=== PATIENT | female | born 2000 | race Caucasian/White ===

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

== ENCOUNTER → 2022-01-19 11:05 | Outpatient (BNVA) | payer MEDICAID, SELFPAY | PROVIDERS: PCP Family Medicine; Visit Provider Obstetrics & Gynecology | DX: Z34.80 Encounter for supervision of other normal pregnancy, unspecified trimester (principal) | CPT/HCPCS: 84315; 87081 ==

== ENCOUNTER → 2022-02-02 11:06 | Outpatient (BNVA) | payer MEDICAID, SELFPAY | PROVIDERS: PCP Family Medicine; Visit Provider Obstetrics & Gynecology | DX: Z34.92 Encounter for supervision of normal pregnancy, unspecified, second trimester (principal) | CPT/HCPCS: 83986; 84315 ==

== ENCOUNTER 2022-02-17 17:02 | Inpatient (IN) | payer MEDICAID, SELFPAY ==
[2022-02-17] VITALS (19 sets, daily range): BP systolic 100–142; BP diastolic 57–83; PULSE 65–121; RESP 16–18; TEMP 37.3; O2SAT 98–99; BMI 29.9
--- NOTE | 2022-02-17 17:43 | PM.OPHPUD ---
Labor & Delivery H&P Update Date of Procedure: February 18, 2022 Date H&P Performed: 02/16/22 H&P update information: I have reviewed H&P completed within last 30 days, I have examined patient prior to procedure and No changes to prior documentation Admission Diagnosis: Preop diagnosis: Planning of labor analgesia
[2022-02-17] MEDS: miSOPROStol 100 mcg tablet 25 MCG VAGINAL (18:08)
[2022-02-17 18:13] LABS: Basophils % 0.3 %; Eosinophils % 0.3 %; Hematocrit 36.1 % (37.0-47.0); Hemoglobin 12.1 g/dL (11.5-15.3); Lymphocytes # 1.7 10^3/uL (1.5-6.5); Lymphocytes % 22.8 %; Mean Corpuscular HGB Conc 33.5 g/dL (30.0-36.0); Mean Corpuscular Hemoglobin 29.4 pg (28.0-34.0); Mean Corpuscular Volume 87.8 fl (81-99); Monocytes # 0.6 10^3/uL (0.2-0.9); Monocytes % 7.6 %; Neutrophils # 5.23 10^3/uL (1.8-8.0); Neutrophils % 68.6 %; Nucleated Red Blood Cells % 0 %; Platelet Count 214 10^3/cmm (130-400); Red Blood Count 4.11 10^6/uL (4.1-5.3); Red Cell Distribution Width 13.3 % (12.1-15.1); White Blood Count 7.6 10^3/uL (4.5-13.0)
[2022-02-17] MEDS: dextrose 5%-lactated ringers 1,000 ML 125 ML IV (22:15)
[2022-02-17] MEDS: fentaNYL 50 mcg/mL INJ 2mL IVP (22:15)
[2022-02-17] MEDS: lactated ringers 1,000 ML 999 ML IV (22:33)
--- NOTE | 2022-02-17 23:38 | P.ANESUD_ITS ---
Pre-Anesthetic Update Pre-Anesthetic Assessment: Date of Surgery/Procedure: 02/17/22 Preop Carmela gnosis: Planning of labor analgesia Proposed Procedure: Labor Epidural Changes from Pre-Anesthetic Assessment: none Last Intake: 1999 Labs Last 48hrs: Short CBC 02/17/22 Range/Units 17:20 WBC 7.6 (4.5-13.0) 10^3/ uL Hgb 12.1 (11.5-15.3) g/dL Hct 36.1 L (37.0-47.0) % MCV 87.8 (81-99) fl Plt Count 214 (130-400) 10^3/c mm Neut % (Auto) 68.6 % Neut # (Auto) 5.23 (1.8-8.0) 10^3/u L Vitals: Temperature 99.1 F 02/17/22 17:10 Pulse Rate 121 H 02/17/22 23:33 Pulse Rhythm 02/17/22 17:35 Pulse Strength 3+ Normal 02/17/22 17:35 Respiratory Rate 16 02/17/22 22:15 Respiratory Effort Non-Labored 02/17/22 22:15 Respiratory Depth Normal 02/17/22 22:15 Respiratory Patter n 02/17/22 22:15 Blood Pressure 137/75 02/17/22 23:33 Pulse Oximetry 98 02/17/22 23:31 Oxygen Delivery Me thod 02/17/22 17:35 Cardiac Studies: No Data to Display Anesthesia Procedures Epidural: Time Out Performed: Yes Consents Signed: Procedure Consent Consent: requested by attending/covering physician, from patient, risks and benefits reviewed and patient agrees to proceed Lumbar Level: L3-L4 Epidural position: sitting Epidural procedure: sterile prep of area, 1% lidocaine to numb the area, negative for paresthesia passed, test dose given, no systemic response, sterile dressing applied, L.U.D. no apparent complications and 0.2% Ropiavacaine @ mls/hr (13) Additional Comments: MARTINA at 5.5cm on first attempt, catheter threaded to 12 cm with ease. Remaining 1% lidocaine given via epidural with 100 mcg of Fentanyl.
[2022-02-18] VITALS (65 sets, daily range): BP systolic 94–139; BP diastolic 51–90; PULSE 59–123; RESP 14–17; TEMP 36.6–38.4
[2022-02-18] MEDS: dextrose 5%-lactated ringers 1,000 ML 125 ML IV (04:03)
[2022-02-18] MEDS: alum-mag-hydroxide-sime 30 mL UDC PO (05:49)
--- NOTE | 2022-02-18 06:45 | P.PN_ITS ---
Subjective Subjective: Mrs. Conroy is a 21-year-old female G1, P0 with an EGA at 39+2. In active labor with epidural. Vitals/I&O/Wt Last Vital Signs Temp 101.1 F H 02/18/22 06:03 Pulse 87 02/18/22 06:41 Resp 16 02/17/22 22:15 BP 121/66 02/18/22 06:41 Pulse Ox 98 02/17/22 23:31 02/17/22 02/17/22 02/18/22 14:59 22:59 06:59 Intake Total 825.000 / 825.000 Output Total 1700 / 1700 Balance -875.000 / -875.000 Weight last 48 hrs Weight 81.647 kg Physical Exam Narrative: GA: Alert and oriented ?3. Lungs: Clear to auscultation bilaterally. Heart: Regular rhythm and rate. Abdomen: Gravid, full the height equals dates, nontender. BRIM GREASER OPERATOR: SVE; dilation: 10 cm, effacement: 95%, station: -4, presentation: vx, membranes: SROM clear. Extremities: no edema, no cyanosis, no calves pain. heart tracing: Basal rate: 140's bpm, Variability: moderate, Accelerations: present, Decelerations: absent, Contraction: q3min. Urinary Catheter Management: Gonsalves: Cath Placed During This Visit: yes Reason for Continuing Indwelling Catheter: Other Urinary Catheter Date of Insertion: 02/18/22 Urinary Catheter Time of Insertion: 00:15 Data : 02/17/22 17:20 A&P Assessment and plan (1) Active labor at term: Mrs. Smith 21-year-old female G1, P0 with an estimated gestational age of 39 weeks 2 days. Admitted for elective induction. Misoprostol was given for cervical ripening just once. She progressed adequately. heart tracing category 1. scalp stimulation positive. Anticipate vaginal delivery. Status: Acute Plan Continue monitoring. Attestations Medical Necessity Statement*: In my professional opinion per admitting diagnosis Coding Level of Care Code Acute Storage Management Architect for Chg Fwd Diagnoses Active labor at term
--- NOTE | 2022-02-18 12:15 | PM.DELIVERY ---
Delivery Note: Date of delivery: February 18, 2022 Pre-delivery diagnoses: Term Post-delivery diagnoses: Term delivered Procedure: A spontaneous vaginal delivery Delivering Physician: Juventino Kim MD Estimated blood loss (mL): 300 Delivery: The patient was noted to be complete and pushing, so was placed in the dorsal lithotomy position, prepped and draped in the usual sterile fashion for a vaginal delivery. Pt. Noted to have epidural anesthesia. At 1130 the patient delivered a viable term male weighing 3520g with scores of 8 and 9 at one and five minutes, respectively. The vertex was delivered spontaneously over intact.. The patient was asked to push and the head delivered spontaneously in the CHRISTIAN position, over an intact perineum. A nuchal cord was checked and none noted. The anterior shoulder delivered easily and the posterior shoulder followed. The remainder of the was easily delivered and the oropharynx and nasopharynx was bulb suctioned. The was noted to have spontaneous cry and spontaneous movement of all four extremities. The cord was clamped x 2 and cut and noted to have 2 arteries and one vein. The was passed to the mother's at where nursing personnel were in attendance. Cord blood sample was then obtained. The placenta delivered intact spontaneously and the uterus was explored. 20 units of Pitocin was placed in the IV bag to firm the uterus. Examination of the cervix and vaginal vault did not reveal any lacerations. A vaginal pack was then placed. Examination of the perineum showed second-degree laceration. The laceration was repaired with 3-0 Vicryl in the normal fashion in a running non locking fashion to reapproximate the laceration in layers. The vaginal pack was then removed. The patient tolerated this procedure well, and recovered in L&D with her in their LDR room. All sponge and needle counts were correct. History History History 1 Term Miscarriages/Ectopic Living Children Coding Level of Care Code Acute Optical Effects Camera Operator for Jesus Grayson
[2022-02-18] MEDS: ibuprofen 800 mg tablet PO ×2 (14:27→22:11)
[2022-02-18] MEDS: oxytocin 30 UNIT/500 ML BAG 600 UNIT IV (14:28)
[2022-02-18] MEDS: lanolin oint 7 gm 1 APPLIC TOPICAL (14:28)
[2022-02-18] MEDS: benzocaine-menthol 78 gm Canister 1 SPRAY TOPICAL (14:28)
[2022-02-18] MEDS: acetaminophen 325 mg Tablet 650 MG PO (19:17)
[2022-02-18] MEDS: docusate sodium 100 mg Capsule PO (19:18)
[2022-02-19 01:50] LABS: Hematocrit 33.2 % (37.0-47.0); Mean Corpuscular HGB Conc 33.1 g/dL (30.0-36.0); Mean Corpuscular Hemoglobin 29.7 pg (28.0-34.0); Mean Corpuscular Volume 89.7 fl (81-99); Mean Platelet Volume 10.8 fL (7.4-10.4); Platelet Count 190 10^3/cmm (130-400); Red Cell Distribution Width 13.4 % (12.1-15.1); White Blood Count 13.2 10^3/uL (4.5-13.0)
--- NOTE | 2022-02-19 07:21 | ANE.PACU2 ---
Inpatient post-anesthesia follow up: Airway intact: Yes Vital signs: Temperature 97.8 F Pulse Rate 64 Respiratory Rate 16 Blood Pressure 136/73 Pulse Oximetry 98 Oxygen Delivery Me thod Room Air Oxygen Flow Rate Fraction of Inspir ed Oxygen Hydration adequate: Yes Nausea and vomiting: No Pain level: 2 Mental status: Baseline
[2022-02-19] MEDS: docusate sodium 100 mg Capsule PO (08:53)
[2022-02-19] MEDS: prenatal vitamin Capsule 1 CAP PO (08:53)
[2022-02-19] MEDS: ibuprofen 800 mg tablet PO (08:53)
[2022-02-19 10:27] VITALS: BP 130/77; PULSE 65; RESP 16; TEMP 37.1; O2SAT 97
--- NOTE | 2022-02-19 11:48 | PM.OBGYDC ---
Discharge Providers BONE DRIER OPERATOR Date of Admission: 02/17/22 17:02 Date of Discharge: 02/19/22 Attending Provider at Admission: Juventino Kim MD Attending Provider at Discharge: Juventino Kim MD Primary BONE DRIER OPERATOR: Juventino Kim MD Primary Care Provider: Ray Blank MD Diagnoses at Discharge Discharge Diagnosis (1) Term delivered: Status: Acute Reason for Visit Reason for Visit: Induction Hospital Course Hospital Course Mrs. Smith 21-year-old female G1, P1 admitted to labor and delivery with an IUP at an estimated gestational age of 39 weeks 2 days for elective induction. She progressed to have a spontaneous vaginal delivery without complication. She delivered her male, Apgars 8/9 with a birthweight of 3520 g. observation was uneventful. She is afebrile hemodynamically stable day 1, tolerating diet well. Ambulating without difficulty. Breast-feeding without difficulty. Information Peripartum Data: Delivery Method: Vaginal Physical Exam Narrative: GA; alert and oriented x 3 HEENT: normal Breasts: engorged Nipples - skin intact Lungs; clear to auscultation Heart: regular rhythm, no murmurs. Abd: Appropriately tender. BS+. Uterine fundus below umbilicus. No Fundal Tenderness. Perineum: normal lochia. Extremities: no edema, no cyanosis, no tenderness. Urinary Catheter Management: Gonsalves: Cath Placed During This Visit: yes, but has since been removed by the nurse Reason for Continuing Indwelling Catheter: Required Immobilization for Trauma or Surgery or Anesthesia Urinary Catheter Date of Insertion: 02/18/22 Urinary Catheter Time of Insertion: 00:15 Date Urinary Catheter Removed: 02/18/22 Time Urinary Catheter Discontinued: 10:50 History History History 1 Term Miscarriages/Ectopic Living Children Discharge Data Studies Completed and Pending Laboratory Results WBC 13.2 10^3/uL (4.5-13.0) H 02/19/22 01:30 RBC 3.70 10^6/uL (4.1-5.3) L 02/19/22 01:30 Hgb 11.0 g/dL (11.5-15.3) L 02/19/22 01:30 Hct 33.2 % (37.0-47.0) L 02/19/22 01:30 MCV 89.7 fl (81-99) 02/19/22 01:30 MCH 29.7 pg (28.0-34.0) 02/19/22 01:30 MCHC 33.1 g/dL (30.0-36.0) 02/19/22 01:30 RDW 13.4 % (12.1-15.1) 02/19/22 01:30 Plt Count 190 10^3/cmm (130-400) 02/19/22 01:30 MPV 10.8 fL (7.4-10.4) H 02/19/22 01:30 Neut % (Auto) 68.6 % 02/17/22 17:20 Lymph % (Auto) 22.8 % 02/17/22 17:20 [place] % (Auto) 7.6 % 02/17/22 17:20 Eos % (Auto) 0.3 % 02/17/22 17:20 Baso % (Auto) 0.3 % 02/17/22 17:20 Neut # (Auto) 5.23 10^3/uL (1.8-8.0) 02/17/22 17:20 Lymph # (Auto) 1.7 10^3/uL (1.5-6.5) 02/17/22 17:20 [place] # (Auto) 0.6 10^3/uL (0.2-0.9) 02/17/22 17:20 Eos # (Auto) 0.0 10^3/uL (0.0-0.8) 02/17/22 17:20 Baso # (Auto) 0.0 10^3/uL (0.0-0.1) 02/17/22 17:20 Nucleated RBC % (auto) 0 % 02/17/22 17:20 Nucleated RBCs # 0.0 /100WBC 02/17/22 17:20 Vitals Last Vital Signs Temp 98.7 F 02/19/22 10:27 Pulse 65 02/19/22 10:27 Resp 16 02/19/22 10:27 BP 130/77 02/19/22 10:27 Pulse Ox 97 02/19/22 10:27 Discharge Plan Discharge Patient Disposition: Home Condition: Stable Prescriptions: New acetaminophen 325 mg capsule 325 mg PO Q4H PRN (Reason: fever or pain) Qty: 60 0RF ferrous sulfate [Iron (ferrous sulfate)] 325 mg (65 mg iron) tablet 325 mg PO BID Qty: 60 0RF ibuprofen 800 mg tablet 800 mg PO TID PRN (Reason: pain) Qty: 60 0RF docusate sodium [Colace] 100 mg capsule 100 mg PO BID Qty: 60 0RF Continued famotidine [Acid Brick Setter (famotidine)] 20 mg tablet 20 mg PO BID 0RF prenat.vits,mitzi,tsd-ldwr-hgyrr Tablet 1 tab PO DAILY 0RF amitriptyline 10 mg tablet See Rx Instructions .ROUTE .COMPLEX Qty: 30 0RF Dose Instruction: TAKE 1 TABLET BY MOUTH EVERYDAY AT BEDTIME Rx Instructions: TAKE 1 TABLET BY MOUTH EVERYDAY AT BEDTIME Discharge Orders: Discharge Order (Routine); Ordered 02/19/22 Ordered By: Juventino Kim Referrals: Juventino Kim MD [Physician] - 6 Weeks Discharge Diet: Advance as tolerated and Usual diet Discharge Activity: Limit activity as instructed Patient Instructions: Opioid Safety, Vaginal Delivery (GEN), Bleeding (GEN), Caring for Your Baby (GEN), Your 's Appearance (GEN) Activity Restrictions/Additional Instructions: 1. Please call [facility] on next working day to make your appointment in 6 weeks. 2. Please stay home until you come back to the clinic on first post-operative check up. 3. Please follow instructions on your medications CAREFULLY. 4. If you have abdominal incision, do not cover it unless dressing is necessary because of drainage. OK to shower, but avoid bath. Leave steri-strips until they fall off. If they are still on one week after surgery, you may remove them. 5. If you had vaginal surgery or vaginal repair, Dr. Kim may instruct you to take SITZ bath. 6. Yellow, blood tinged odorous vaginal discharge is usually normal after hysterectomy or vaginal surgeries. 7. No sexual intercourse, tampons, or douches until you are completely released from the post-operative care. 8. Avoid constipation by eating right and maybe using some Metamucil or Milk of Magnesia. 9. All prescription refills are given during the working hours. Please do no wait till it runs out. Call the clinic at [phone] before your medication runs out. The clinic will get in touch with your doctor to prescribe medications if necessary. 10. Please remain within 40 mile radius from our hospital because emergencies do happen now and then during the post-operative period. 11. If you have stairs at home, take one step at a time slowly and minimize the number of trips. It helps to stay in one floor for the next few days. No lifting except what you can lift by one hand until you are released from the post-operative care. 12. Driving is discouraged until you are well healed. It may be 3-4 weeks before you feel strong enough to drive. You should be able to turn and look through the rear window without pain and you should be able to push the brake pedal very hard without pain before you drive. No fast rules, but SAFETY should be your primary concern. DO NOT drive if you are on sedating medications such as narcotics. 13. Call the clinic (during working hours) to make urgent appointment or go to the Emergency room, if any of the following occurs: i. Vaginal bleeding becomes heavy, more than a period. ii. Incision becomes red and sore, or drains pus. iii. Your temperature is over 100.4 or you have chill. iv. IV site becomes red and swollen (a little ``knot?? is usually OK) v. Persistent nausea and vomiting vi. Persistent constipation or diarrhea vii. Rash or allergic reaction to medications. Discharge Attestations BONE DRIER OPERATOR Time Spent in Discharge Care*: greater than 30 min Coding Level of Care Code Acute Resource Engineer for Chg Fwd Diagnoses Term delivered O80
[2022-02-19] MEDS: benzocaine-menthol 78 gm Canister 1 SPRAY TOPICAL (12:29)
[2022-02-19 14:20] VITALS: BP 133/84; PULSE 93; RESP 16; TEMP 36.7; O2SAT 97
== END 2022-02-19 14:25 | disposition home or self-care (01) | DRG 807 ==
LOC: OPOB 17:02 → OBGYN 17:02
PROVIDERS: Admitting Provider Obstetrics & Gynecology; PCP Family Medicine; Visit Provider Obstetrics & Gynecology
DX: O70.1 Second degree perineal laceration during delivery (principal); Z37.0 Single live birth; Z3A.39 39 weeks gestation of pregnancy
CPT/HCPCS: 36415; 51702; 59025; 59409; 85025; 85027; J2795; J3010